=== PATIENT | male | born 1990 | race Caucasian/White ===

== ENCOUNTER 2022-11-28 09:38 | Inpatient (IN) ==
[2022-11-28] MEDS ORDERED: NORMOSOL-R pH 7.4 1000 mL BAG 1,000 ML IV ONE (09:41)
[2022-11-28] MEDS ORDERED: Thiamine 100 MG/ML 2 ml VIAL (200 mg) IV ONE (09:44)
[2022-11-28 10:31] LABS: ABS Basophils 0.1 10^3/ul (0-0.2); ABS Lymphocytes 0.9 10^3/ul (1.0-4.8); ABS Monocytes 0.6 10^3/ul (0-0.8); ABS Neutrophils 7.4 10^3/ul (1.5-7.7); ABS Nucleated RBC 0.1 10^3/ul; Eosinophil % 0.1 %; Hematocrit 39 % (42-52); Hemoglobin 11.6 g/dL (14.0-18.0); Lymphocyte % 9.9 %; Mean Corpuscular HGB Conc 30 g/dL (31-36); Mean Corpuscular Hemoglobin 36 pg (27-31); Mean Corpuscular Volume 120 fL (80-94); Mean Platelet Volume 9.7 fL (7.4-10.4); Nucleated Red Blood Cells % 0.5; Platelet Count 195 10^3/uL (150-450); Red Blood Count 3.25 10^6 /uL (4.18-5.48); Red Cell Distribution Width 19 % (10-15)
[2022-11-28] MEDS ORDERED: Cefepime 1 GM in Dextrose 1 GM/50 ML BAG IV ONE (10:36)
[2022-11-28] MEDS ORDERED: Vancomycin 1,250 MG in NS 0.9% 250 ml 250 ML IVPB ONE (10:36)
[2022-11-28 10:51] LABS: Albumin 3.7 g/dL (3.2-5.2); Albumin/Globulin Ratio 1.3 (1-3); C Reactive Protein 50.95 mg/L (<8.01); Calcium 8.7 mg/dL (8.6-10.3); Creatinine, Serum 2.62 mg/dL (0.67-1.17); Globulin 2.9 g/dL (2-4); Potassium 4.1 mmol/L (3.5-5.0); Total Bilirubin 2.1 mg/dL (0.2-1.0); Total Protein 6.6 g/dL (6.4-8.9); eGFR CKD-EPI 31.9 (>60)
[2022-11-28] MEDS ORDERED: Lorazepam PYXIS KEY PRN ×2 (10:59→11:30)
[2022-11-28] MEDS ORDERED: LORazepam 2 mg VIAL 1 ml IV PUSH ONE ×2 (10:59→11:30)
[2022-11-28] MEDS: NORMOSOL-R pH 7.4 1000 mL BAG 1,000 ML IV SCH ×2 (11:05→16:05)
[2022-11-28] MEDS ORDERED: Iodixanol (CONTRAST) 320 MG/ML 100 ML SDV IV ONE (11:07)
[2022-11-28] MEDS ORDERED: Dextrose 50% Syringe 50 ml 25 GM/50 ML SYRINGE IV PUSH PRN (11:10)
[2022-11-28 11:50] LABS: Venous Bicarbonate HCO3 13.3 mmol/L (24-28)
[2022-11-28] MEDS: Insulin Infusion 100unit/100mL 100 UNIT/100 ML BAG IV SCH (11:55)
[2022-11-28] MEDS: Dexmedetomidine 1,000 MCG in NS 0.9% 250 ml 240 ML IV SCH (11:59)
[2022-11-28] MEDS ORDERED: NORMOSOL R PH IV ONE (12:00)
[2022-11-28] MEDS ORDERED: Vancomycin 1,750 MG in NS 0.9% 500 ml BAG 500 ML IVPB ONE (12:00)
[2022-11-28 13:30] LABS: Creatine Kinase 111 U/L (10-223)
[2022-11-28 13:51] LABS: Triglycerides 1180 mg/dL
[2022-11-28] MEDS ORDERED: Thiamine IV 100 MG/ML VIAL (only for Bannana Bags !) IVPB SCH (14:00)
[2022-11-28 14:26] LABS: Activated Partial Thrombo Time 39.5 seconds (26.0-38.0); INR 1.26 (0.88-1.18)
[2022-11-28] MEDS: Thiamine IV 500 MG in NS 0.9% 250 ML (Wernicke-Korsakoff) IV SCH ×3 (14:46→23:24)
[2022-11-28 15:20] LABS: Urine Appearance Cloudy; Urine Bilirubin Negative (Negative); Urine Blood 3+ (Negative); Urine Color Yellow; Urine Glucose 3+(>=500 mg/dL) (Negative); Urine Ketones Trace (Negative); Urine Nitrite Negative (Negative); Urine Protein 2+(100 mg/dL) (Negative); Urine Specific Gravity 1.025 (1.002-1.030); Urine Urobilinogen Negative (Negative)
[2022-11-28] MEDS: LORazepam 2 mg VIAL 1 ml IV PUSH SCH ×2 (15:21→17:20)
[2022-11-28 15:24] LABS: Urine Bacteria 1+ (Absent); Urine Red Blood Cell 1+(3-5/hpf) (Absent); Urine Squamous Epithelial Cell Present (Absent); Urine White Blood Cell 1+(6-10/hpf) (Absent); Urine Yeast Present (Absent)
[2022-11-28 15:34] LABS: PCO2 Arterial 25 mmHg (35-45); PO2 Arterial 92 mmHg (80-100)
[2022-11-28 16:21] LABS: Anion Gap 23 mmol/L (2-11); CO2 Carbon Dioxide 18 mmol/L (22-32); Calcium 8.1 mg/dL (8.6-10.3); Chloride 96 mmol/L (101-111); Potassium 3.1 mmol/L (3.5-5.0); Sodium 137 mmol/L (135-145)
[2022-11-28 16:26] LABS: Blood Urea Nitrogen 37 mg/dL (6-24); eGFR CKD-EPI 35.4 (>60)
[2022-11-28] MEDS: KCL 20 MEQ/100 ML IVPREMIX 20 MEQ/100 ML BAG IV SCH ×3 (16:48→21:01)
[2022-11-28] MEDS: Enoxaparin 40 MG/0.4 ML SYR SUBCUT SCH (16:48)
[2022-11-28 16:51] LABS: Glucose 918 mg/dL (70-100)
[2022-11-28] MEDS ORDERED: NS 0.9% w/ 20 Meq KCL 1000 ml 1,000 ML IV SCH (17:00)
[2022-11-28 17:30] LABS: TSH Ultra Thyroid Stim Horm 1.07 mcIU/mL (0.34-5.60)
[2022-11-28 17:42] LABS: Folate 2.71 ng/mL (5.90-24.80)
[2022-11-28 17:43] LABS: Vitamin B12 > 1450 pg/mL (180-914)
[2022-11-28] MEDS ORDERED: Folic Acid IV 1 MG in NS 0.9% 50 ML 50 ML IV ONE (18:30)
[2022-11-28 18:45] LABS: Glucose Confirmatory 499 mg/dL (70-100)
[2022-11-28] MEDS ORDERED: Thiamine 100 MG/ML 2 ml VIAL 500 MG in NS 0.9% 250 ml 250 ML IV ONE (19:13)
[2022-11-28] MEDS: Potassium Chloride IV 40 MEQ in Lactated Ringers 1000 ml BAG 1,000 ML IVPB SCH (20:26)
[2022-11-28 21:01] LABS: Anion Gap 10 mmol/L (2-11); Blood Urea Nitrogen 39 mg/dL (6-24); CO2 Carbon Dioxide 27 mmol/L (22-32); Calcium 7.7 mg/dL (8.6-10.3); Chloride 105 mmol/L (101-111); Creatinine, Serum 2.51 mg/dL (0.67-1.17); Potassium 3.6 mmol/L (3.5-5.0); Sodium 142 mmol/L (135-145); eGFR CKD-EPI 33.6 (>60)
[2022-11-28 21:07] LABS: Total Bilirubin 1.9 mg/dL (0.2-1.0)
[2022-11-28 21:32] LABS: Glucose 723 mg/dL (70-100); Phosphorus < 1.0 mg/dL (2.5-5.0)
[2022-11-28] MEDS ORDERED: Potassium Phosphate IV 15 MMOL in NS 0.9% 250 ml 250 ML IVPB ONE (23:00)
[2022-11-29 00:15] LABS: Calcium 7.9 mg/dL (8.6-10.3); Creatinine, Serum 2.49 mg/dL (0.67-1.17); Potassium 3.5 mmol/L (3.5-5.0); eGFR CKD-EPI 33.9 (>60)
[2022-11-29 00:51] LABS: Glucose Confirmatory 497 mg/dL (70-100)
[2022-11-29] MEDS: Potassium Chloride IV 40 MEQ in Lactated Ringers 1000 ml BAG 1,000 ML IVPB SCH ×5 (00:59→22:36)
[2022-11-29] MEDS: Insulin Infusion 100unit/100mL 100 UNIT/100 ML BAG IV SCH (01:55)
[2022-11-29] MEDS: Dexmedetomidine 1,000 MCG in NS 0.9% 250 ml 240 ML IV SCH ×3 (01:58→18:26)
[2022-11-29 03:34] LABS: Blood Urea Nitrogen 41 mg/dL (6-24); CO2 Carbon Dioxide 26 mmol/L (22-32); Creatinine, Serum 2.23 mg/dL (0.67-1.17); Glucose 249 mg/dL (70-100); Magnesium 2.9 mg/dL (1.9-2.7); Potassium 3.7 mmol/L (3.5-5.0); eGFR CKD-EPI 38.7 (>60)
[2022-11-29 03:37] LABS: Anion Gap 12 mmol/L (2-11); Chloride 120 mmol/L (101-111); Phosphorus < 1.0 mg/dL (2.5-5.0); Sodium 158 mmol/L (135-145)
[2022-11-29] MEDS ORDERED: D5W 1000 ml BAG 1,000 ML IV SCH ×4 (04:00→20:00)
[2022-11-29] MEDS ORDERED: Potassium Phosphate IV 30 MMOL in NS 0.9% 250 ml 250 ML IVPB ONE ×2 (05:30→12:15)
[2022-11-29] MEDS: Thiamine IV 500 MG in NS 0.9% 250 ML (Wernicke-Korsakoff) IV SCH ×3 (06:00→21:22)
[2022-11-29 06:50] LABS: ABS Lymphocytes 1.3 10^3/ul (1.0-4.8); ABS Monocytes 0.6 10^3/ul (0-0.8); ABS Neutrophils 5.2 10^3/ul (1.5-7.7); Eosinophil % 0.4 %; Hematocrit 26 % (42-52); Hemoglobin 8.9 g/dL (14.0-18.0); Lymphocyte % 18.2 %; Mean Corpuscular HGB Conc 34 g/dL (31-36); Mean Corpuscular Hemoglobin 36 pg (27-31); Mean Corpuscular Volume 105 fL (80-94); Mean Platelet Volume 9.3 fL (7.4-10.4); Nucleated Red Blood Cells % 0.3; Platelet Count 117 10^3/uL (150-450); Red Blood Count 2.46 10^6 /uL (4.18-5.48); Red Cell Distribution Width 18 % (10-15); White Blood Count 7.1 10^3/uL (3.5-10.8)
[2022-11-29 07:22] LABS: Calcium 7.9 mg/dL (8.6-10.3); Creatinine, Serum 1.94 mg/dL (0.67-1.17); Magnesium 2.6 mg/dL (1.9-2.7); Potassium 3.5 mmol/L (3.5-5.0); eGFR CKD-EPI 45.7 (>60)
[2022-11-29] MEDS: LORazepam 2 mg VIAL 1 ml IV PUSH SCH ×2 (07:37→14:00)
[2022-11-29] MEDS ORDERED: diazePAM INJ CARPUJECT 5 MG/ML SYRINGE IV SCH ×2 (08:00→11:30)
[2022-11-29 08:45] LABS: Calcium 7.7 mg/dL (8.6-10.3); Creatinine, Serum 1.79 mg/dL (0.67-1.17); Potassium 3.3 mmol/L (3.5-5.0); eGFR CKD-EPI 50.4 (>60)
[2022-11-29] MEDS ORDERED: Folic Acid IV 5 MG/ML 10 ML VIAL (50 mg) IV SCH (09:00)
[2022-11-29] MEDS: FOLIC ACID IV SCH (09:26)
[2022-11-29] MEDS: NS 0.9% IV SCH (09:26)
[2022-11-29 10:57] LABS: Calcium 7.6 mg/dL (8.6-10.3); Creatinine, Serum 1.74 mg/dL (0.67-1.17); Magnesium 2.4 mg/dL (1.9-2.7); Phosphorus 1.4 mg/dL (2.5-5.0); Potassium 3.3 mmol/L (3.5-5.0); eGFR CKD-EPI 52.1 (>60)
[2022-11-29 11:22] LABS: Albumin 2.9 g/dL (3.2-5.2); Direct Bilirubin 0.5 mg/dL (0.03-0.18); Total Bilirubin 1.5 mg/dL (0.2-1.0)
[2022-11-29 11:28] LABS: Albumin/Globulin Ratio 1.4 (1-3); Globulin 2.1 g/dL (2-4)
[2022-11-29] MEDS: Insulin GLARGINE 100 un/ml 10 ml VIAL SUBCUT SCH (13:02)
[2022-11-29] MEDS: fentaNYL 100 mcg/2 ml 50 MCG/ML VIAL IV SLOW PU ONE ×2 (13:10→14:19)
[2022-11-29] MEDS ORDERED: fentaNYL 100 mcg/2 ml 50 MCG/ML VIAL IV SLOW PU ONE ×3 (13:48→14:46)
[2022-11-29] MEDS ORDERED: fentaNYL 100 mcg/2 ml 50 MCG/ML VIAL ONE (13:50)
[2022-11-29] MEDS: Pantoprazole VIAL 40 MG VIAL IV SCH (13:54)
[2022-11-29] MEDS ORDERED: Norepinephrine 16MCG/ML BAGD5W 4,000 MCG/250 ML BAG IV ONE (14:20)
[2022-11-29] MEDS ORDERED: Propofol 10 mg/ml 100 ML BTL 1,000 MG/100 ML BTL ONE (14:23)
[2022-11-29] MEDS ORDERED: Rocuronium 50 mg VIAL 10 mg/ml 5 ml VIAL (50 mg) IV ONE (14:23)
[2022-11-29] MEDS ORDERED: Midazolam 50 MG PREMIX IV DRIP 50 ML IV SCH ×2 (14:45→15:00)
[2022-11-29] MEDS: Rocuronium 50 mg VIAL 10 mg/ml 5 ml VIAL (50 mg) ONE ×2 (14:54→15:23)
[2022-11-29] MEDS ORDERED: fentaNYL INFUSION 50 mcg/mL VL 2,500 MCG/50 ML VIAL IV SCH ×2 (15:00→17:47)
[2022-11-29] MEDS ORDERED: Propofol 10 mg/ml 100 ML BTL 1,000 MG/100 ML BTL IV SCH (15:00)
[2022-11-29] MEDS ORDERED: Furosemide 40 mg/4 ml IV VIAL IV ONE (16:21)
[2022-11-29] MEDS: Norepinephrine 16MCG/ML BAGD5W 4,000 MCG/250 ML BAG IV SCH (16:50)
[2022-11-29 17:16] LABS: Urine Appearance Turbid; Urine Bilirubin Negative (Negative); Urine Blood 3+ (Negative); Urine Color Yellow; Urine Glucose 3+(>=500 mg/dL) (Negative); Urine Ketones Trace (Negative); Urine Nitrite Negative (Negative); Urine Protein 3+(>=500 mg/dL) (Negative); Urine Specific Gravity 1.033 (1.002-1.030); Urine Urobilinogen Negative (Negative)
[2022-11-29 17:23] LABS: Urine Amorphous Crystals Present (Absent); Urine Bacteria Absent (Absent); Urine Red Blood Cell 3+(>10/hpf) (Absent); Urine White Blood Cell Trace(0-5/hpf) (Absent)
[2022-11-29 17:31] LABS: Creatinine, Serum 1.53 mg/dL (0.67-1.17); Potassium 4.3 mmol/L (3.5-5.0)
[2022-11-29 17:32] LABS: Calcium 7.5 mg/dL (8.6-10.3); eGFR CKD-EPI 60.8 (>60)
[2022-11-29] MEDS ORDERED: Vancomycin per Pharmacy 1 EA NOTE FOLLOW UP PRN (17:37)
[2022-11-29] MEDS: Enoxaparin 40 MG/0.4 ML SYR SUBCUT SCH (17:46)
[2022-11-29] MEDS: KCL 20 MEQ/100 ML IVPREMIX 20 MEQ/100 ML BAG IV SCH ×2 (17:46→20:32)
[2022-11-29] MEDS: Meropenem 1 GM PREMIX(*) 1 GM/50 ML BAG IV SCH (17:46)
[2022-11-29 17:51] LABS: PCO2 Arterial 33 mmHg (35-45); PO2 Arterial 122 mmHg (80-100)
[2022-11-29] MEDS ORDERED: Vancomycin 2,000 MG in NS 0.9% 500 ml BAG 500 ML IVPB ONE (18:00)
[2022-11-29] MEDS: Propofol 10 mg/ml 100 ML BTL 1,000 MG/100 ML BTL IV SCH ×2 (18:14→19:16)
[2022-11-29] MEDS: Midazolam 50 MG PREMIX IV DRIP 50 ML IV SCH ×2 (18:18→19:13)
[2022-11-29] MEDS: diazePAM INJ CARPUJECT 5 MG/ML SYRINGE IV SCH (20:32)
[2022-11-29] MEDS: Chlorhexidine MOUTHWASH 0.12% 15 ML UDC TOPICAL SCH ×2 (20:32→22:09)
[2022-11-29] MEDS ORDERED: Acetaminophen IV 1 GM/100ML 1,000 MG/100 ML BAG IV PRN (21:42)
[2022-11-29] MEDS: Acetaminophen IV 1 GM/100ML 1,000 MG/100 ML BAG IV PRN (22:09)
[2022-11-30 00:46] LABS: Calcium 6.9 mg/dL (8.6-10.3); Creatinine, Serum 1.87 mg/dL (0.67-1.17); Magnesium 2.1 mg/dL (1.9-2.7); Phosphorus 2.8 mg/dL (2.5-5.0); Potassium 4.1 mmol/L (3.5-5.0); eGFR CKD-EPI 47.8 (>60)
[2022-11-30] MEDS: Midazolam 50 MG PREMIX IV DRIP 50 ML IV SCH ×5 (00:46→20:35)
[2022-11-30] MEDS: Meropenem 1 GM PREMIX(*) 1 GM/50 ML BAG IV SCH ×3 (01:38→18:05)
[2022-11-30] MEDS: diazePAM INJ CARPUJECT 5 MG/ML SYRINGE IV SCH ×4 (01:38→19:39)
[2022-11-30] MEDS: Propofol 10 mg/ml 100 ML BTL 1,000 MG/100 ML BTL IV SCH ×6 (01:44→18:03)
[2022-11-30] MEDS: Chlorhexidine MOUTHWASH 0.12% 15 ML UDC TOPICAL SCH ×6 (02:09→23:00)
[2022-11-30] MEDS: Dexmedetomidine 1,000 MCG in NS 0.9% 250 ml 240 ML IV SCH ×3 (02:37→20:06)
[2022-11-30 04:27] LABS: ABS Basophils 0.1 10^3/ul (0-0.2); ABS Eosinophils 0.1 10^3/ul (0-0.6); ABS Lymphocytes 2.1 10^3/ul (1.0-4.8); ABS Monocytes 0.4 10^3/ul (0-0.8); ABS Neutrophils 4.2 10^3/ul (1.5-7.7); Eosinophil % 2.1 %; Hematocrit 26 % (42-52); Hemoglobin 8.4 g/dL (14.0-18.0); Lymphocyte % 30.6 %; Mean Corpuscular HGB Conc 33 g/dL (31-36); Mean Corpuscular Hemoglobin 36 pg (27-31); Mean Corpuscular Volume 108 fL (80-94); Mean Platelet Volume 9.8 fL (7.4-10.4); Nucleated Red Blood Cells % 0.3; Platelet Count 117 10^3/uL (150-450); Red Blood Count 2.36 10^6 /uL (4.18-5.48); Red Cell Distribution Width 19 % (10-15); White Blood Count 6.9 10^3/uL (3.5-10.8)
[2022-11-30 04:54] LABS: Albumin 2.8 g/dL (3.2-5.2); Albumin/Globulin Ratio 1.3 (1-3); Calcium 6.9 mg/dL (8.6-10.3); Creatinine, Serum 2.14 mg/dL (0.67-1.17); Globulin 2.2 g/dL (2-4); Potassium 4.3 mmol/L (3.5-5.0); Total Bilirubin 1.7 mg/dL (0.2-1.0); eGFR CKD-EPI 40.6 (>60)
[2022-11-30 05:18] LABS: Magnesium 2.1 mg/dL (1.9-2.7)
[2022-11-30] MEDS: Thiamine IV 500 MG in NS 0.9% 250 ML (Wernicke-Korsakoff) IV SCH ×3 (05:43→22:50)
[2022-11-30] MEDS ORDERED: Vancomycin 1,500 MG in NS 0.9% 250 ml 250 ML IVPB SCH (06:30)
[2022-11-30] MEDS ORDERED: Lactated Ringers 1000 ml BAG 1,000 ML IV ONE ×2 (07:36→10:43)
[2022-11-30] MEDS ORDERED: Lactated Ringers 1000 ml BAG 1,000 ML IV SCH (08:00)
[2022-11-30] MEDS: Pantoprazole VIAL 40 MG VIAL IV SCH (08:29)
[2022-11-30] MEDS: FOLIC ACID IV SCH (08:38)
[2022-11-30] MEDS: NS 0.9% IV SCH (08:38)
[2022-11-30] MEDS: Insulin GLARGINE 100 un/ml 10 ml VIAL SUBCUT SCH (08:38)
[2022-11-30] MEDS ORDERED: Midazolam 50 MG PREMIX IV DRIP 50 ML IV SCH (10:28)
[2022-11-30] MEDS: Enoxaparin 40 MG/0.4 ML SYR SUBCUT SCH (11:31)
[2022-11-30] MEDS: fentaNYL INFUSION 50 mcg/mL VL 2,500 MCG/50 ML VIAL IV SCH ×2 (12:00→16:15)
[2022-11-30] MEDS ORDERED: diazePAM INJ CARPUJECT 5 MG/ML SYRINGE IV ONE (12:09)
[2022-11-30] MEDS ORDERED: Ketamine HCL 50 mg/ml 10 ml VIAL (500 MG) ONE (14:30)
[2022-11-30] MEDS ORDERED: fentaNYL 250 mcg/5 ml 50 MCG/ML 5 ml VIAL (250 MCG) ONE (14:30)
[2022-11-30] MEDS ORDERED: Rocuronium 50 mg VIAL 10 mg/ml 5 ml VIAL (50 mg) ONE (14:30)
[2022-11-30] MEDS ORDERED: Midazolam 10 mg/10 ml VIAL 1 mg/ml 10 ml VIAL (10 mg) ONE (14:30)
[2022-11-30 14:56] LABS: Calcium 6.8 mg/dL (8.6-10.3); Creatinine, Serum 2.29 mg/dL (0.67-1.17); Potassium 4.9 mmol/L (3.5-5.0); eGFR CKD-EPI 37.5 (>60)
[2022-11-30] MEDS ORDERED: Vancomycin 1000 MG in NS 0.9% 250 ML IVPB SCH (18:30)
[2022-11-30 20:12] LABS: Calcium 6.7 mg/dL (8.6-10.3); Creatinine, Serum 2.31 mg/dL (0.67-1.17); Potassium 4.5 mmol/L (3.5-5.0); eGFR CKD-EPI 37.1 (>60)
[2022-11-30] MEDS: Acetaminophen IV 1 GM/100ML 1,000 MG/100 ML BAG IV PRN (22:59)
[2022-12-01] MEDS: diazePAM INJ CARPUJECT 5 MG/ML SYRINGE IV SCH ×4 (02:00→20:40)
[2022-12-01] MEDS: Meropenem 1 GM PREMIX(*) 1 GM/50 ML BAG IV SCH ×3 (02:01→17:00)
[2022-12-01] MEDS: Midazolam 50 MG PREMIX IV DRIP 50 ML IV SCH ×5 (02:27→23:23)
[2022-12-01] MEDS: Dexmedetomidine 1,000 MCG in NS 0.9% 250 ml 240 ML IV SCH ×3 (03:54→18:41)
[2022-12-01] MEDS: Chlorhexidine MOUTHWASH 0.12% 15 ML UDC TOPICAL SCH ×6 (04:09→22:03)
[2022-12-01 04:35] LABS: ABS Eosinophils 0.3 10^3/ul (0-0.6); ABS Lymphocytes 1.6 10^3/ul (1.0-4.8); ABS Monocytes 0.3 10^3/ul (0-0.8); ABS Neutrophils 5.5 10^3/ul (1.5-7.7); ABS Nucleated RBC 0.1 10^3/ul; Eosinophil % 3.5 %; Hematocrit 26 % (42-52); Hemoglobin 8.6 g/dL (14.0-18.0); Lymphocyte % 20.7 %; Mean Corpuscular HGB Conc 33 g/dL (31-36); Mean Corpuscular Hemoglobin 36 pg (27-31); Mean Corpuscular Volume 109 fL (80-94); Mean Platelet Volume 9.8 fL (7.4-10.4); Platelet Count 153 10^3/uL (150-450); Red Blood Count 2.42 10^6 /uL (4.18-5.48); Red Cell Distribution Width 19 % (10-15); White Blood Count 7.8 10^3/uL (3.5-10.8)
[2022-12-01 05:14] LABS: Albumin 2.7 g/dL (3.2-5.2); Albumin/Globulin Ratio 1.1 (1-3); Calcium 6.8 mg/dL (8.6-10.3); Creatinine, Serum 2.02 mg/dL (0.67-1.17); Direct Bilirubin 0.7 mg/dL (0.03-0.18); Globulin 2.4 g/dL (2-4); Indirect Bilirubin 1.2 mg/dL (0.3-1.0); Magnesium 1.9 mg/dL (1.9-2.7); Phosphorus 1.9 mg/dL (2.5-5.0); Potassium 4.9 mmol/L (3.5-5.0); Total Bilirubin 1.9 mg/dL (0.2-1.0); Total Protein 5.1 g/dL (6.4-8.9); Vancomycin Trough 29.7 mcg/mL; eGFR CKD-EPI 43.6 (>60)
[2022-12-01] MEDS: Thiamine IV 500 MG in NS 0.9% 250 ML (Wernicke-Korsakoff) IV SCH ×3 (05:46→21:58)
[2022-12-01] MEDS ORDERED: Vancomycin Trough Check NOTE FOLLOW UP ONE (06:00)
[2022-12-01] MEDS: Insulin GLARGINE 100 un/ml 10 ml VIAL SUBCUT SCH (08:14)
[2022-12-01] MEDS: NS 0.9% IV SCH (08:15)
[2022-12-01] MEDS: Pantoprazole VIAL 40 MG VIAL IV SCH (08:15)
[2022-12-01] MEDS: FOLIC ACID IV SCH (08:15)
[2022-12-01] MEDS ORDERED: Potassium Phosphate IV 15 MMOL in NS 0.9% 250 ml 250 ML IVPB ONE (09:00)
[2022-12-01] MEDS ORDERED: Insulin GLARGINE 100 un/ml 10 ml VIAL SUBCUT ONE (09:00)
[2022-12-01] MEDS: Enoxaparin 40 MG/0.4 ML SYR SUBCUT SCH (09:11)
[2022-12-01] MEDS ORDERED: fentaNYL 100 mcg/2 ml 50 MCG/ML VIAL ONE (11:05)
[2022-12-01] MEDS ORDERED: Furosemide 40 mg/4 ml IV VIAL IV ONE (11:14)
[2022-12-01] MEDS ORDERED: fentaNYL 100 mcg/2 ml 50 MCG/ML VIAL IV SLOW PU ONE (11:23)
[2022-12-01] MEDS: Acetaminophen IV 1 GM/100ML 1,000 MG/100 ML BAG IV PRN (15:55)
[2022-12-01 17:37] LABS: Calcium 7.1 mg/dL (8.6-10.3); Creatinine, Serum 1.84 mg/dL (0.67-1.17); eGFR CKD-EPI 48.7 (>60)
[2022-12-01 17:49] LABS: Potassium 5.2 mmol/L (3.5-5.0)
[2022-12-01] MEDS: fentaNYL INFUSION 50 mcg/mL VL 2,500 MCG/50 ML VIAL IV SCH (18:20)
[2022-12-01] MEDS: Dexmedetomidine 1,000 MCG in NS 0.9% 250 ML IV SCH (22:26)
[2022-12-02] MEDS: Dexmedetomidine 1,000 MCG in NS 0.9% 250 ML IV SCH ×4 (00:58→19:02)
[2022-12-02] MEDS: Meropenem 1 GM PREMIX(*) 1 GM/50 ML BAG IV SCH ×3 (01:31→18:42)
[2022-12-02] MEDS: diazePAM INJ CARPUJECT 5 MG/ML SYRINGE IV SCH ×4 (01:49→20:20)
[2022-12-02] MEDS: Chlorhexidine MOUTHWASH 0.12% 15 ML UDC TOPICAL SCH ×6 (02:06→22:54)
[2022-12-02] MEDS: Midazolam 50 MG PREMIX IV DRIP 50 ML IV SCH ×4 (04:25→19:15)
[2022-12-02 04:37] LABS: ABS Basophils 0.1 10^3/ul (0-0.2); ABS Eosinophils 0.2 10^3/ul (0-0.6); ABS Lymphocytes 1.3 10^3/ul (1.0-4.8); ABS Monocytes 0.4 10^3/ul (0-0.8); ABS Neutrophils 5.6 10^3/ul (1.5-7.7); ABS Nucleated RBC 0.1 10^3/ul; Eosinophil % 2.8 %; Hematocrit 27 % (42-52); Hemoglobin 8.8 g/dL (14.0-18.0); Lymphocyte % 17.3 %; Mean Corpuscular HGB Conc 33 g/dL (31-36); Mean Corpuscular Hemoglobin 36 pg (27-31); Mean Corpuscular Volume 109 fL (80-94); Nucleated Red Blood Cells % 1.9; Platelet Count 184 10^3/uL (150-450); Red Blood Count 2.47 10^6 /uL (4.18-5.48); Red Cell Distribution Width 18 % (10-15); White Blood Count 7.6 10^3/uL (3.5-10.8)
[2022-12-02 04:40] LABS: Albumin 2.7 g/dL (3.2-5.2); Calcium 6.8 mg/dL (8.6-10.3); Magnesium 1.5 mg/dL (1.9-2.7); Potassium 4.4 mmol/L (3.5-5.0); Total Bilirubin 1.8 mg/dL (0.2-1.0)
[2022-12-02 04:46] LABS: Albumin/Globulin Ratio 1.2 (1-3); Creatinine, Serum 1.54 mg/dL (0.67-1.17); Globulin 2.3 g/dL (2-4); Phosphorus 2.5 mg/dL (2.5-5.0); eGFR CKD-EPI 60.3 (>60)
[2022-12-02] MEDS: Thiamine IV 500 MG in NS 0.9% 250 ML (Wernicke-Korsakoff) IV SCH ×3 (05:29→21:40)
[2022-12-02] MEDS ORDERED: Magnesium Sulf 4 GM/100 ML IV 4,000 MG/100 ML BAG IVPB ONE (06:10)
[2022-12-02] MEDS: Insulin GLARGINE 100 un/ml 10 ml VIAL SUBCUT SCH (08:34)
[2022-12-02] MEDS: Pantoprazole VIAL 40 MG VIAL IV SCH (08:35)
[2022-12-02] MEDS: FOLIC ACID IV SCH (08:35)
[2022-12-02] MEDS: NS 0.9% IV SCH (08:35)
[2022-12-02] MEDS: Enoxaparin 40 MG/0.4 ML SYR SUBCUT SCH (08:35)
[2022-12-02] MEDS ORDERED: Dexmedetomidine 200 mcg/2 ml 2 ml VIAL (200 mcg) ONE (09:00)
[2022-12-02] MEDS: Norepinephrine 16MCG/ML BAGD5W 4,000 MCG/250 ML BAG IV SCH (10:10)
[2022-12-02] MEDS: Acetaminophen IV 1 GM/100ML 1,000 MG/100 ML BAG IV PRN (10:50)
[2022-12-02] MEDS ORDERED: Midazolam 5 mg/5 ml VIAL 1 mg/ml 5 ml VIAL (5 mg) ONE (13:40)
[2022-12-02] MEDS ORDERED: fentaNYL 100 mcg/2 ml 50 MCG/ML VIAL ONE (13:47)
[2022-12-02] MEDS ORDERED: Midazolam 2 mg/2 ml VIAL 1 mg/ml 2 ml VIAL (2 mg) IV SLOW PU ONE (14:29)
[2022-12-02] MEDS: fentaNYL INFUSION 50 mcg/mL VL 2,500 MCG/50 ML VIAL IV SCH (23:44)
[2022-12-02] MEDS: Dextran 70/Hypromellose Tears Eye Drops 15 ml BTL (for Artificials Tears) BOTH EYES PRN (23:49)
[2022-12-03] MEDS: Midazolam 50 MG PREMIX IV DRIP 50 ML IV SCH ×5 (00:24→19:39)
[2022-12-03] MEDS: Dexmedetomidine 1,000 MCG in NS 0.9% 250 ML IV SCH ×4 (00:59→19:33)
[2022-12-03] MEDS: Chlorhexidine MOUTHWASH 0.12% 15 ML UDC TOPICAL SCH ×6 (02:00→23:09)
[2022-12-03] MEDS: diazePAM INJ CARPUJECT 5 MG/ML SYRINGE IV SCH ×3 (02:00→15:54)
[2022-12-03] MEDS: Meropenem 1 GM PREMIX(*) 1 GM/50 ML BAG IV SCH ×3 (02:01→17:53)
[2022-12-03] MEDS: Acetaminophen IV 1 GM/100ML 1,000 MG/100 ML BAG IV PRN ×3 (02:08→21:47)
[2022-12-03] MEDS ORDERED: Polyethylene Glycol 3350 17 GM PACKET PO PRN (02:38)
[2022-12-03] MEDS ORDERED: Senna TAB 8.6 mg TAB PO PRN (02:38)
[2022-12-03 04:38] LABS: Hematocrit 25 % (42-52); Hemoglobin 8.1 g/dL (14.0-18.0); Mean Corpuscular HGB Conc 32 g/dL (31-36); Mean Corpuscular Hemoglobin 35 pg (27-31); Mean Corpuscular Volume 108 fL (80-94); Platelet Count 203 10^3/uL (150-450); Red Blood Count 2.32 10^6 /uL (4.18-5.48); Red Cell Distribution Width 18 % (10-15)
[2022-12-03 05:10] LABS: Calcium 6.8 mg/dL (8.6-10.3); Creatinine, Serum 1.09 mg/dL (0.67-1.17); Magnesium 1.7 mg/dL (1.9-2.7); Phosphorus 2.3 mg/dL (2.5-5.0); Potassium 4.4 mmol/L (3.5-5.0); eGFR CKD-EPI 91.3 (>60)
[2022-12-03] MEDS: Thiamine IV 500 MG in NS 0.9% 250 ML (Wernicke-Korsakoff) IV SCH ×3 (05:22→22:08)
[2022-12-03] MEDS: Docusate LIQ 100 MG/10 ML UDC PO PRN (05:22)
[2022-12-03] MEDS: Dextran 70/Hypromellose Tears Eye Drops 15 ml BTL (for Artificials Tears) BOTH EYES PRN ×2 (05:34→08:56)
[2022-12-03] MEDS ORDERED: Magnesium Sulfate IV 3 GM in NS 0.9% 100 ml BAG 100 ML IVPB ONE (06:28)
[2022-12-03 06:32] LABS: ABS Basophils 0.1 10^3/ul (0-0.2); ABS Eosinophils 0.2 10^3/ul (0-0.6); ABS Lymphocytes 1.3 10^3/ul (1.0-4.8); ABS Monocytes 0.5 10^3/ul (0-0.8); ABS Neutrophils 4.9 10^3/ul (1.5-7.7); ABS Nucleated RBC 0.1 10^3/ul; Eosinophil % 2.3 %; Lymphocyte % 18.8 %; Nucleated Red Blood Cells % 1.3
[2022-12-03] MEDS ORDERED: Potassium Phosphate IV 5 MMOL in NS 0.9% 250 ml 250 ML IVPB ONE (07:36)
[2022-12-03] MEDS: Pantoprazole VIAL 40 MG VIAL IV SCH (08:33)
[2022-12-03] MEDS: Enoxaparin 40 MG/0.4 ML SYR SUBCUT SCH (08:33)
[2022-12-03] MEDS: NS 0.9% IV SCH (08:33)
[2022-12-03] MEDS: FOLIC ACID IV SCH (08:33)
[2022-12-03] MEDS: Insulin GLARGINE 100 un/ml 10 ml VIAL SUBCUT SCH (08:51)
[2022-12-03] MEDS ORDERED: Midazolam 5 mg/5 ml VIAL 1 mg/ml 5 ml VIAL (5 mg) ONE (10:21)
[2022-12-03] MEDS ORDERED: Midazolam 5 mg/5 ml VIAL 1 mg/ml 5 ml VIAL (5 mg) IV SLOW PU ONE (10:23)
[2022-12-03] MEDS ORDERED: Ondansetron 4 mg VIAL 2 MG/ML 2 ml VIAL ONE (20:16)
[2022-12-03] MEDS ORDERED: Midazolam 2 mg/2 ml VIAL 1 mg/ml 2 ml VIAL (2 mg) ONE (20:16)
[2022-12-03] MEDS ORDERED: Midazolam 2 mg/2 ml VIAL 1 mg/ml 2 ml VIAL (2 mg) IV SLOW PU ONE (20:41)
[2022-12-03] MEDS: Ondansetron 4 mg VIAL 2 MG/ML 2 ml VIAL IV PRN (20:47)
[2022-12-03] MEDS: Metoclopramide 5 MG/ML VIAL (10 mg) IV SLOW PU SCH (22:06)
[2022-12-04] MEDS: diazePAM INJ CARPUJECT 5 MG/ML SYRINGE IV SCH ×4 (00:12→23:58)
[2022-12-04] MEDS: Midazolam 50 MG PREMIX IV DRIP 50 ML IV SCH ×3 (00:15→20:49)
[2022-12-04] MEDS: Dexmedetomidine 1,000 MCG in NS 0.9% 250 ML IV SCH ×4 (01:05→20:09)
[2022-12-04] MEDS: Meropenem 1 GM PREMIX(*) 1 GM/50 ML BAG IV SCH ×3 (01:53→17:50)
[2022-12-04] MEDS: Chlorhexidine MOUTHWASH 0.12% 15 ML UDC TOPICAL SCH ×7 (02:01→23:59)
[2022-12-04] MEDS: Dextran 70/Hypromellose Tears Eye Drops 15 ml BTL (for Artificials Tears) BOTH EYES PRN (02:01)
[2022-12-04] MEDS: Metoclopramide 5 MG/ML VIAL (10 mg) IV SLOW PU SCH ×3 (02:01→14:13)
[2022-12-04 04:25] LABS: Hematocrit 24 % (42-52); Hemoglobin 7.8 g/dL (14.0-18.0); Mean Corpuscular HGB Conc 33 g/dL (31-36); Mean Corpuscular Hemoglobin 36 pg (27-31); Mean Corpuscular Volume 108 fL (80-94); Mean Platelet Volume 8.6 fL (7.4-10.4); Platelet Count 216 10^3/uL (150-450); Red Cell Distribution Width 18 % (10-15); White Blood Count 5.8 10^3/uL (3.5-10.8)
[2022-12-04 05:15] LABS: Albumin 2.4 g/dL (3.2-5.2); Albumin/Globulin Ratio 1.1 (1-3); Calcium 6.5 mg/dL (8.6-10.3); Creatinine, Serum 0.79 mg/dL (0.67-1.17); Globulin 2.2 g/dL (2-4); Magnesium 1.4 mg/dL (1.9-2.7); Phosphorus 2.9 mg/dL (2.5-5.0); Potassium 3.7 mmol/L (3.5-5.0); Total Bilirubin 1.3 mg/dL (0.2-1.0); Total Protein 4.6 g/dL (6.4-8.9); eGFR CKD-EPI 119.5 (>60)
[2022-12-04] MEDS ORDERED: Magnesium Sulf 4 GM/100 ML IV 4,000 MG/100 ML BAG IVPB ONE (05:24)
[2022-12-04] MEDS ORDERED: Potassium Chloride LIQUID 20 MEQ/15 ML LIQUID PO ONE ×2 (05:24→07:00)
[2022-12-04 05:32] LABS: ABS Eosinophils 0.1 10^3/ul (0-0.6); ABS Lymphocytes 1.3 10^3/ul (1.0-4.8); ABS Monocytes 0.7 10^3/ul (0-0.8); ABS Neutrophils 3.7 10^3/ul (1.5-7.7); Eosinophil % 2.3 %; Lymphocyte % 22.1 %; Nucleated Red Blood Cells % 0.3
[2022-12-04] MEDS ORDERED: Furosemide 40 mg/4 ml IV VIAL IV SLOW PU ONE (05:35)
[2022-12-04] MEDS: Thiamine IV 500 MG in NS 0.9% 250 ML (Wernicke-Korsakoff) IV SCH ×3 (05:49→20:44)
[2022-12-04] MEDS: NS 0.9% IV SCH (08:25)
[2022-12-04] MEDS: Insulin GLARGINE 100 un/ml 10 ml VIAL SUBCUT SCH (08:25)
[2022-12-04] MEDS: FOLIC ACID IV SCH (08:25)
[2022-12-04] MEDS: Pantoprazole VIAL 40 MG VIAL IV SCH (08:26)
[2022-12-04] MEDS: Enoxaparin 40 MG/0.4 ML SYR SUBCUT SCH (10:26)
[2022-12-04] MEDS: fentaNYL INFUSION 50 mcg/mL VL 2,500 MCG/50 ML VIAL IV SCH (10:49)
[2022-12-04] MEDS ORDERED: OLANZapine 5 mg TAB *ODT PO SCH (11:00)
[2022-12-04] MEDS ORDERED: Midazolam IV for DRIP 100 MG in NS 0.9% 100 ml BAG 80 ML IV SCH (11:00)
[2022-12-04] MEDS ORDERED: Metoclopramide 5 MG/ML VIAL (10 mg) IV SLOW PU PRN (18:00)
[2022-12-04] MEDS: OLANZapine 5 mg TAB *ODT PO SCH (20:43)
[2022-12-05] MEDS: Ondansetron 4 mg VIAL 2 MG/ML 2 ml VIAL IV PRN (01:07)
[2022-12-05] MEDS: fentaNYL INFUSION 50 mcg/mL VL 2,500 MCG/50 ML VIAL IV SCH ×2 (02:00→08:39)
[2022-12-05] MEDS: Meropenem 1 GM PREMIX(*) 1 GM/50 ML BAG IV SCH ×3 (02:15→18:03)
[2022-12-05] MEDS: Dexmedetomidine 1,000 MCG in NS 0.9% 250 ML IV SCH ×4 (02:24→20:36)
[2022-12-05] MEDS: Dextran 70/Hypromellose Tears Eye Drops 15 ml BTL (for Artificials Tears) BOTH EYES PRN ×2 (02:32→19:10)
[2022-12-05] MEDS: Midazolam 50 MG PREMIX IV DRIP 50 ML IV SCH ×2 (03:55→09:17)
[2022-12-05] MEDS: Chlorhexidine MOUTHWASH 0.12% 15 ML UDC TOPICAL SCH ×6 (04:11→22:35)
[2022-12-05 04:43] LABS: Hematocrit 24 % (42-52); Hemoglobin 8.1 g/dL (14.0-18.0); Mean Corpuscular HGB Conc 34 g/dL (31-36); Mean Corpuscular Hemoglobin 36 pg (27-31); Mean Corpuscular Volume 108 fL (80-94); Mean Platelet Volume 8.7 fL (7.4-10.4); Platelet Count 239 10^3/uL (150-450); Red Blood Count 2.24 10^6 /uL (4.18-5.48); Red Cell Distribution Width 18 % (10-15); White Blood Count 5.9 10^3/uL (3.5-10.8)
[2022-12-05] MEDS ORDERED: Furosemide 40 mg/4 ml IV VIAL IV SLOW PU ONE (05:09)
[2022-12-05 05:24] LABS: Calcium 7.1 mg/dL (8.6-10.3); Creatinine, Serum 0.67 mg/dL (0.67-1.17); Magnesium 1.5 mg/dL (1.9-2.7); Phosphorus 2.7 mg/dL (2.5-5.0); Potassium 3.9 mmol/L (3.5-5.0); eGFR CKD-EPI 125.6 (>60)
[2022-12-05 05:43] LABS: Anisocytosis 1+; Macrocytosis 1+; Polychromasia 1+
[2022-12-05 05:44] LABS: ABS Basophils 0.1 10^3/ul (0-0.2); ABS Eosinophils 0.1 10^3/ul (0-0.6); ABS Lymphocytes 1.4 10^3/ul (1.0-4.8); ABS Monocytes 0.8 10^3/ul (0-0.8); ABS Neutrophils 3.4 10^3/ul (1.5-7.7); Eosinophil % 2.2 %; Lymphocyte % 23.9 %; Nucleated Red Blood Cells % 0.4
[2022-12-05] MEDS ORDERED: Magnesium Sulf 4 GM/100 ML IV 4,000 MG/100 ML BAG IVPB ONE (05:51)
[2022-12-05] MEDS ORDERED: Potassium Chloride LIQUID 20 MEQ/15 ML LIQUID PO ONE (05:51)
[2022-12-05] MEDS: Thiamine IV 500 MG in NS 0.9% 250 ML (Wernicke-Korsakoff) IV SCH ×3 (05:53→21:09)
[2022-12-05] MEDS: Enoxaparin 40 MG/0.4 ML SYR SUBCUT SCH (09:11)
[2022-12-05] MEDS: Pantoprazole VIAL 40 MG VIAL IV SCH (09:11)
[2022-12-05] MEDS: diazePAM INJ CARPUJECT 5 MG/ML SYRINGE IV SCH ×3 (09:18→23:34)
[2022-12-05] MEDS: NS 0.9% IV SCH (09:19)
[2022-12-05] MEDS: Insulin GLARGINE 100 un/ml 10 ml VIAL SUBCUT SCH (09:19)
[2022-12-05] MEDS: FOLIC ACID IV SCH (09:19)
[2022-12-05] MEDS: OLANZapine 5 mg TAB *ODT PO SCH ×2 (09:20→20:28)
[2022-12-05] MEDS: Acetaminophen IV 1 GM/100ML 1,000 MG/100 ML BAG IV PRN ×2 (10:01→18:28)
[2022-12-05 12:01] LABS: Albumin 2.6 g/dL (3.2-5.2); Albumin/Globulin Ratio 1.1 (1-3); Direct Bilirubin 0.3 mg/dL (0.03-0.18); Globulin 2.4 g/dL (2-4); Indirect Bilirubin 0.7 mg/dL (0.3-1.0)
[2022-12-05] MEDS ORDERED: Midazolam 50 MG PREMIX IV DRIP 50 ML IV SCH (14:54)
[2022-12-05] MEDS: Propofol 10 mg/ml 100 ML BTL 1,000 MG/100 ML BTL IV SCH ×2 (16:16→23:06)
[2022-12-05] MEDS ORDERED: Midazolam 2 mg/2 ml VIAL 1 mg/ml 2 ml VIAL (2 mg) IV SLOW PU PRN (17:51)
[2022-12-05] MEDS: Docusate LIQ 100 MG/10 ML UDC PO PRN (23:57)
[2022-12-06] MEDS: Chlorhexidine MOUTHWASH 0.12% 15 ML UDC TOPICAL SCH ×2 (02:07→06:16)
[2022-12-06] MEDS: Meropenem 1 GM PREMIX(*) 1 GM/50 ML BAG IV SCH ×3 (02:08→18:24)
[2022-12-06] MEDS: Dexmedetomidine 1,000 MCG in NS 0.9% 250 ML IV SCH ×2 (02:42→08:45)
[2022-12-06] MEDS: Thiamine IV 500 MG in NS 0.9% 250 ML (Wernicke-Korsakoff) IV SCH ×3 (05:04→21:36)
[2022-12-06 05:27] LABS: ABS Basophils 0.1 10^3/ul (0-0.2); ABS Eosinophils 0.1 10^3/ul (0-0.6); ABS Lymphocytes 1.2 10^3/ul (1.0-4.8); ABS Monocytes 0.6 10^3/ul (0-0.8); ABS Neutrophils 3.6 10^3/ul (1.5-7.7); Eosinophil % 2.2 %; Hematocrit 25 % (42-52); Hemoglobin 8.2 g/dL (14.0-18.0); Mean Corpuscular HGB Conc 33 g/dL (31-36); Mean Corpuscular Hemoglobin 35 pg (27-31); Mean Corpuscular Volume 107 fL (80-94); Nucleated Red Blood Cells % 0.5; Platelet Count 281 10^3/uL (150-450); Red Blood Count 2.34 10^6 /uL (4.18-5.48); Red Cell Distribution Width 17 % (10-15); White Blood Count 5.6 10^3/uL (3.5-10.8)
[2022-12-06 06:10] LABS: Calcium 7.7 mg/dL (8.6-10.3); Creatinine, Serum 0.69 mg/dL (0.67-1.17); Magnesium 1.6 mg/dL (1.9-2.7); Phosphorus 2.7 mg/dL (2.5-5.0); Potassium 3.8 mmol/L (3.5-5.0); eGFR CKD-EPI 124.5 (>60)
[2022-12-06] MEDS: Propofol 10 mg/ml 100 ML BTL 1,000 MG/100 ML BTL IV SCH (06:33)
[2022-12-06] MEDS ORDERED: Magnesium Sulf 4 GM/100 ML IV 4,000 MG/100 ML BAG IVPB ONE (07:38)
[2022-12-06] MEDS: diazePAM INJ CARPUJECT 5 MG/ML SYRINGE IV SCH (09:09)
[2022-12-06] MEDS: OLANZapine 5 mg TAB *ODT PO SCH ×2 (09:10→21:41)
[2022-12-06] MEDS: FOLIC ACID IV SCH (09:16)
[2022-12-06] MEDS: NS 0.9% IV SCH (09:16)
[2022-12-06] MEDS: Insulin GLARGINE 100 un/ml 10 ml VIAL SUBCUT SCH (09:20)
[2022-12-06] MEDS: Pantoprazole VIAL 40 MG VIAL IV SCH (09:21)
[2022-12-06] MEDS: Enoxaparin 40 MG/0.4 ML SYR SUBCUT SCH (09:21)
[2022-12-06] MEDS: Acetaminophen IV 1 GM/100ML 1,000 MG/100 ML BAG IV PRN ×2 (12:11→20:42)
[2022-12-06] MEDS ORDERED: Anidulafungin 200 MG in NS 0.9% 250 ml 200 ML IVPB ONE (12:53)
[2022-12-06] MEDS: Dexmedetomidine 1,000 MCG in NS 0.9% 250 ml 240 ML IV SCH (14:35)
[2022-12-06] MEDS: Metoprolol Tartrate 5 mg VIAL 5 ml VIAL (1 mg/ml) IV PRN (17:15)
[2022-12-07] MEDS: Meropenem 1 GM PREMIX(*) 1 GM/50 ML BAG IV SCH ×3 (01:40→19:20)
[2022-12-07 04:30] LABS: Hematocrit 26 % (42-52); Hemoglobin 8.4 g/dL (14.0-18.0); Mean Corpuscular HGB Conc 33 g/dL (31-36); Mean Corpuscular Hemoglobin 35 pg (27-31); Mean Corpuscular Volume 107 fL (80-94); Platelet Count 283 10^3/uL (150-450); Red Blood Count 2.42 10^6 /uL (4.18-5.48); Red Cell Distribution Width 18 % (10-15)
[2022-12-07 05:08] LABS: Calcium 7.8 mg/dL (8.6-10.3); Creatinine, Serum 0.61 mg/dL (0.67-1.17); Magnesium 1.6 mg/dL (1.9-2.7); Phosphorus 2.9 mg/dL (2.5-5.0); Potassium 3.6 mmol/L (3.5-5.0); eGFR CKD-EPI 129.3 (>60)
[2022-12-07] MEDS: Acetaminophen IV 1 GM/100ML 1,000 MG/100 ML BAG IV PRN ×2 (05:15→13:45)
[2022-12-07 05:21] LABS: ABS Eosinophils 0.1 10^3/ul (0-0.6); ABS Lymphocytes 1.6 10^3/ul (1.0-4.8); ABS Monocytes 0.7 10^3/ul (0-0.8); ABS Neutrophils 4.6 10^3/ul (1.5-7.7); Eosinophil % 1.2 %; Lymphocyte % 23.1 %; Nucleated Red Blood Cells % 0.3
[2022-12-07 05:25] LABS: Anisocytosis 2+; Polychromasia 2+
[2022-12-07] MEDS: Thiamine IV 500 MG in NS 0.9% 250 ML (Wernicke-Korsakoff) IV SCH (05:37)
[2022-12-07] MEDS: Dexmedetomidine 1,000 MCG in NS 0.9% 250 ml 240 ML IV SCH (06:12)
[2022-12-07] MEDS: FOLIC ACID IV SCH (07:56)
[2022-12-07] MEDS: Pantoprazole VIAL 40 MG VIAL IV SCH (07:56)
[2022-12-07] MEDS: NS 0.9% IV SCH (07:56)
[2022-12-07] MEDS: OLANZapine 5 mg TAB *ODT PO SCH ×2 (07:56→20:26)
[2022-12-07] MEDS: Dextran 70/Hypromellose Tears Eye Drops 15 ml BTL (for Artificials Tears) BOTH EYES PRN ×2 (07:56→17:04)
[2022-12-07] MEDS ORDERED: Magnesium Sulf 4 GM/100 ML IV 4,000 MG/100 ML BAG IVPB ONE (08:03)
[2022-12-07] MEDS ORDERED: Potassium Chlor 20 meq TAB.ER PO ONE (08:03)
[2022-12-07] MEDS: Insulin GLARGINE 100 un/ml 10 ml VIAL SUBCUT SCH (08:51)
[2022-12-07] MEDS: Enoxaparin 40 MG/0.4 ML SYR SUBCUT SCH (08:51)
[2022-12-07] MEDS: Metoprolol Tartrate 5 mg VIAL 5 ml VIAL (1 mg/ml) IV PRN ×2 (14:06→20:02)
[2022-12-07] MEDS: Anidulafungin 100 MG in NS 0.9% 100 ml BAG 100 ML IVPB SCH (14:07)
[2022-12-08] MEDS: Metoprolol Tartrate 5 mg VIAL 5 ml VIAL (1 mg/ml) IV PRN (01:41)
[2022-12-08] MEDS: Meropenem 1 GM PREMIX(*) 1 GM/50 ML BAG IV SCH ×3 (02:19→17:33)
[2022-12-08 04:25] LABS: Hematocrit 25 % (42-52); Hemoglobin 8.2 g/dL (14.0-18.0); Mean Corpuscular HGB Conc 33 g/dL (31-36); Mean Corpuscular Hemoglobin 35 pg (27-31); Mean Corpuscular Volume 105 fL (80-94); Mean Platelet Volume 8.9 fL (7.4-10.4); Platelet Count 356 10^3/uL (150-450); Red Blood Count 2.35 10^6 /uL (4.18-5.48); Red Cell Distribution Width 17 % (10-15); White Blood Count 8.5 10^3/uL (3.5-10.8)
[2022-12-08] MEDS: Acetaminophen IV 1 GM/100ML 1,000 MG/100 ML BAG IV PRN (05:20)
[2022-12-08 05:23] LABS: Calcium 7.7 mg/dL (8.6-10.3); Creatinine, Serum 0.51 mg/dL (0.67-1.17); Magnesium 1.5 mg/dL (1.9-2.7); Potassium 3.3 mmol/L (3.5-5.0); eGFR CKD-EPI 136.4 (>60)
[2022-12-08 05:58] LABS: Polychromasia 2+
[2022-12-08 05:59] LABS: Macrocytosis 3+
[2022-12-08 06:00] LABS: RBC Morphology Normal (Normal)
[2022-12-08 06:01] LABS: ABS Basophils 0.1 10^3/ul (0-0.2); ABS Eosinophils 0.1 10^3/ul (0-0.6); ABS Lymphocytes 1.6 10^3/ul (1.0-4.8); ABS Monocytes 0.8 10^3/ul (0-0.8); ABS Neutrophils 5.9 10^3/ul (1.5-7.7); ABS Nucleated RBC 0.1 10^3/ul; Eosinophil % 1.1 %; Nucleated Red Blood Cells % 0.6
[2022-12-08] MEDS ORDERED: Potassium Chlor 20 meq TAB.ER PO ONE (06:17)
[2022-12-08] MEDS ORDERED: Magnesium Sulf 4 GM/100 ML IV 4,000 MG/100 ML BAG IVPB ONE (06:18)
[2022-12-08 09:24] LABS: Albumin 2.8 g/dL (3.2-5.2); Albumin/Globulin Ratio 1.1 (1-3); Direct Bilirubin 0.2 mg/dL (0.03-0.18); Globulin 2.6 g/dL (2-4); Indirect Bilirubin 0.7 mg/dL (0.3-1.0); Total Bilirubin 0.9 mg/dL (0.2-1.0); Total Protein 5.4 g/dL (6.4-8.9)
[2022-12-08] MEDS: Enoxaparin 40 MG/0.4 ML SYR SUBCUT SCH (10:16)
[2022-12-08] MEDS: Insulin GLARGINE 100 un/ml 10 ml VIAL SUBCUT SCH (10:16)
[2022-12-08] MEDS: Multivitamins ADULT w/MIN LIQ 15 ML UDC PO SCH (10:16)
[2022-12-08] MEDS: Pantoprazole VIAL 40 MG VIAL IV SCH (10:16)
[2022-12-08] MEDS: Dextran 70/Hypromellose Tears Eye Drops 15 ml BTL (for Artificials Tears) BOTH EYES PRN (10:22)
[2022-12-08] MEDS: OLANZapine 5 mg TAB *ODT PO SCH ×2 (10:52→20:38)
[2022-12-08] MEDS: Anidulafungin 100 MG in NS 0.9% 100 ml BAG 100 ML IVPB SCH (14:22)
[2022-12-08] MEDS: Nicotine PATCH 14 MG/24 HR PATCH TRANSDERM SCH (15:22)
[2022-12-09] MEDS: Metoprolol Tartrate 5 mg VIAL 5 ml VIAL (1 mg/ml) IV PRN ×2 (02:22→18:14)
[2022-12-09] MEDS: Meropenem 1 GM PREMIX(*) 1 GM/50 ML BAG IV SCH ×3 (02:22→18:14)
[2022-12-09 04:32] LABS: ABS Basophils 0.1 10^3/ul (0-0.2); ABS Eosinophils 0.1 10^3/ul (0-0.6); ABS Lymphocytes 1.9 10^3/ul (1.0-4.8); ABS Monocytes 0.7 10^3/ul (0-0.8); ABS Neutrophils 5.6 10^3/ul (1.5-7.7); Eosinophil % 1.5 %; Hematocrit 25 % (42-52); Hemoglobin 8.5 g/dL (14.0-18.0); Lymphocyte % 22.4 %; Mean Corpuscular HGB Conc 34 g/dL (31-36); Mean Corpuscular Hemoglobin 35 pg (27-31); Mean Corpuscular Volume 105 fL (80-94); Mean Platelet Volume 8.4 fL (7.4-10.4); Nucleated Red Blood Cells % 0.4; Platelet Count 360 10^3/uL (150-450); Red Blood Count 2.42 10^6 /uL (4.18-5.48); Red Cell Distribution Width 17 % (10-15); White Blood Count 8.4 10^3/uL (3.5-10.8)
[2022-12-09 05:02] LABS: Calcium 7.8 mg/dL (8.6-10.3); Creatinine, Serum 0.58 mg/dL (0.67-1.17); Magnesium 1.6 mg/dL (1.9-2.7); Potassium 3.3 mmol/L (3.5-5.0); eGFR CKD-EPI 131.2 (>60)
[2022-12-09] MEDS ORDERED: Magnesium Sulf 4 GM/100 ML IV 4,000 MG/100 ML BAG IVPB ONE (05:29)
[2022-12-09] MEDS: Enoxaparin 40 MG/0.4 ML SYR SUBCUT SCH (09:05)
[2022-12-09] MEDS: Nicotine PATCH 14 MG/24 HR PATCH TRANSDERM SCH (09:05)
[2022-12-09] MEDS: Insulin GLARGINE 100 un/ml 10 ml VIAL SUBCUT SCH (09:05)
[2022-12-09] MEDS: Pantoprazole VIAL 40 MG VIAL IV SCH (09:06)
[2022-12-09] MEDS: Potassium Chlor 20 meq TAB.ER PO SCH ×2 (09:07→20:26)
[2022-12-09] MEDS: OLANZapine 5 mg TAB *ODT PO SCH ×2 (09:07→20:28)
[2022-12-09] MEDS: Multivitamins ADULT w/MIN LIQ 15 ML UDC PO SCH (09:08)
[2022-12-09] MEDS: Anidulafungin 100 MG in NS 0.9% 100 ml BAG 100 ML IVPB SCH (12:43)
[2022-12-10] MEDS: Meropenem 1 GM PREMIX(*) 1 GM/50 ML BAG IV SCH (03:27)
[2022-12-10 05:23] LABS: ABS Basophils 0.2 10^3/ul (0-0.2); ABS Eosinophils 0.2 10^3/ul (0-0.6); ABS Lymphocytes 1.6 10^3/ul (1.0-4.8); ABS Monocytes 0.6 10^3/ul (0-0.8); ABS Neutrophils 3.7 10^3/ul (1.5-7.7); Eosinophil % 2.6 %; Hematocrit 25 % (42-52); Hemoglobin 8.3 g/dL (14.0-18.0); Lymphocyte % 25.9 %; Mean Corpuscular HGB Conc 33 g/dL (31-36); Mean Corpuscular Hemoglobin 35 pg (27-31); Mean Corpuscular Volume 106 fL (80-94); Mean Platelet Volume 8.2 fL (7.4-10.4); Nucleated Red Blood Cells % 0.4; Platelet Count 344 10^3/uL (150-450); Red Blood Count 2.38 10^6 /uL (4.18-5.48); Red Cell Distribution Width 17 % (10-15); White Blood Count 6.2 10^3/uL (3.5-10.8)
[2022-12-10 06:15] LABS: Calcium 8.2 mg/dL (8.6-10.3); Creatinine, Serum 0.63 mg/dL (0.67-1.17); Magnesium 1.8 mg/dL (1.9-2.7); Potassium 3.6 mmol/L (3.5-5.0)
[2022-12-10] MEDS ORDERED: Magnesium Sulfate IV 1GM/100ML 1 GM/100 ML BAG IV ONE (06:17)
[2022-12-10] MEDS: Potassium Chlor 20 meq TAB.ER PO SCH ×2 (07:55→20:44)
[2022-12-10] MEDS: OLANZapine 5 mg TAB *ODT PO SCH ×2 (07:56→20:45)
[2022-12-10] MEDS: Multivitamins ADULT w/MIN LIQ 15 ML UDC PO SCH (08:01)
[2022-12-10] MEDS: Nicotine PATCH 14 MG/24 HR PATCH TRANSDERM SCH (08:01)
[2022-12-10] MEDS: Pantoprazole VIAL 40 MG VIAL IV SCH (08:02)
[2022-12-10] MEDS ORDERED: Magnesium Sulfate 2 gm BAG 2 GM/50 ML BAG IVPB ONE (08:11)
[2022-12-10] MEDS: Insulin GLARGINE 100 un/ml 10 ml VIAL SUBCUT SCH (08:39)
[2022-12-10] MEDS: Enoxaparin 40 MG/0.4 ML SYR SUBCUT SCH (10:00)
[2022-12-10] MEDS: Anidulafungin 100 MG in NS 0.9% 100 ml BAG 100 ML IVPB SCH (14:48)
[2022-12-11 05:26] LABS: Hematocrit 25 % (42-52); Hemoglobin 8.3 g/dL (14.0-18.0); Mean Corpuscular HGB Conc 33 g/dL (31-36); Mean Corpuscular Hemoglobin 34 pg (27-31); Mean Corpuscular Volume 104 fL (80-94); Mean Platelet Volume 8.6 fL (7.4-10.4); Platelet Count 339 10^3/uL (150-450); Red Blood Count 2.43 10^6 /uL (4.18-5.48); Red Cell Distribution Width 17 % (10-15)
[2022-12-11 05:41] LABS: ABS Eosinophils 0.1 10^3/ul (0-0.6); ABS Lymphocytes 1.7 10^3/ul (1.0-4.8); ABS Monocytes 0.6 10^3/ul (0-0.8); ABS Neutrophils 3.6 10^3/ul (1.5-7.7); Eosinophil % 2.3 %; Lymphocyte % 28.5 %; Nucleated Red Blood Cells % 0.3
[2022-12-11 06:20] LABS: Calcium 8.4 mg/dL (8.6-10.3); Creatinine, Serum 0.52 mg/dL (0.67-1.17); Potassium 3.9 mmol/L (3.5-5.0); eGFR CKD-EPI 135.6 (>60)
[2022-12-11] MEDS: Multivitamins ADULT w/MIN LIQ 15 ML UDC PO SCH (07:57)
[2022-12-11] MEDS: Insulin GLARGINE 100 un/ml 10 ml VIAL SUBCUT SCH (07:58)
[2022-12-11] MEDS: Nicotine PATCH 14 MG/24 HR PATCH TRANSDERM SCH (07:58)
[2022-12-11] MEDS: OLANZapine 5 mg TAB *ODT PO SCH ×2 (08:00→21:29)
[2022-12-11 08:11] LABS: Magnesium 1.6 mg/dL (1.9-2.7)
[2022-12-11] MEDS: Enoxaparin 40 MG/0.4 ML SYR SUBCUT SCH (08:49)
[2022-12-11] MEDS ORDERED: Magnesium Sulf 4 GM/100 ML IV 4,000 MG/100 ML BAG IVPB ONE (09:10)
[2022-12-11] MEDS: Anidulafungin 100 MG in NS 0.9% 100 ml BAG 100 ML IVPB SCH (14:49)
[2022-12-12 07:19] LABS: ABS Basophils 0.2 10^3/ul (0-0.2); ABS Eosinophils 0.2 10^3/ul (0-0.6); ABS Lymphocytes 1.7 10^3/ul (1.0-4.8); ABS Monocytes 0.6 10^3/ul (0-0.8); ABS Neutrophils 2.9 10^3/ul (1.5-7.7); Eosinophil % 2.7 %; Hematocrit 26 % (42-52); Hemoglobin 8.8 g/dL (14.0-18.0); Lymphocyte % 31.1 %; Mean Corpuscular HGB Conc 33 g/dL (31-36); Mean Corpuscular Hemoglobin 35 pg (27-31); Mean Corpuscular Volume 105 fL (80-94); Mean Platelet Volume 8.7 fL (7.4-10.4); Nucleated Red Blood Cells % 0.3; Platelet Count 347 10^3/uL (150-450); Red Blood Count 2.52 10^6 /uL (4.18-5.48); Red Cell Distribution Width 16 % (10-15); White Blood Count 5.5 10^3/uL (3.5-10.8)
[2022-12-12 07:34] LABS: Albumin 2.9 g/dL (3.2-5.2); Albumin/Globulin Ratio 1.1 (1-3); Calcium 8.8 mg/dL (8.6-10.3); Creatinine, Serum 0.56 mg/dL (0.67-1.17); Globulin 2.6 g/dL (2-4); Magnesium 1.7 mg/dL (1.9-2.7); Phosphorus 4.9 mg/dL (2.5-5.0); Potassium 3.9 mmol/L (3.5-5.0); Total Protein 5.5 g/dL (6.4-8.9); eGFR CKD-EPI 132.6 (>60)
[2022-12-12] MEDS: Nicotine PATCH 14 MG/24 HR PATCH TRANSDERM SCH (08:23)
[2022-12-12] MEDS: Insulin GLARGINE 100 un/ml 10 ml VIAL SUBCUT SCH (08:23)
[2022-12-12] MEDS: OLANZapine 5 mg TAB *ODT PO SCH ×2 (08:28→20:56)
[2022-12-12] MEDS: Multivitamins ADULT w/MIN LIQ 15 ML UDC PO SCH (10:12)
[2022-12-12] MEDS: Enoxaparin 40 MG/0.4 ML SYR SUBCUT SCH (10:12)
[2022-12-12] MEDS: Anidulafungin 100 MG in NS 0.9% 100 ml BAG 100 ML IVPB SCH (12:42)
[2022-12-12] MEDS: Nicotine GUM 2MG FRUIT FLAVOR PO PRN ×2 (18:13→20:59)
[2022-12-13] MEDS: Nicotine GUM 2MG FRUIT FLAVOR PO PRN ×4 (02:11→21:21)
[2022-12-13] MEDS: Multivitamins ADULT w/MIN LIQ 15 ML UDC PO SCH (08:43)
[2022-12-13] MEDS: Nicotine PATCH 14 MG/24 HR PATCH TRANSDERM SCH (08:44)
[2022-12-13] MEDS: OLANZapine 5 mg TAB *ODT PO SCH ×2 (08:45→21:23)
[2022-12-13] MEDS: Insulin GLARGINE 100 un/ml 10 ml VIAL SUBCUT SCH (08:46)
[2022-12-13] MEDS: Enoxaparin 40 MG/0.4 ML SYR SUBCUT SCH (10:26)
[2022-12-13] MEDS: Anidulafungin 100 MG in NS 0.9% 100 ml BAG 100 ML IVPB SCH (12:30)
[2022-12-14] MEDS: Nicotine GUM 2MG FRUIT FLAVOR PO PRN ×6 (00:09→20:47)
[2022-12-14] MEDS: Nicotine PATCH 14 MG/24 HR PATCH TRANSDERM SCH (08:42)
[2022-12-14] MEDS: Insulin GLARGINE 100 un/ml 10 ml VIAL SUBCUT SCH (08:43)
[2022-12-14] MEDS: OLANZapine 5 mg TAB *ODT PO SCH ×2 (10:21→20:48)
[2022-12-14] MEDS: Multivitamins ADULT w/MIN LIQ 15 ML UDC PO SCH (10:23)
[2022-12-14] MEDS: Enoxaparin 40 MG/0.4 ML SYR SUBCUT SCH (10:25)
[2022-12-14] MEDS: Anidulafungin 100 MG in NS 0.9% 100 ml BAG 100 ML IVPB SCH (13:33)
[2022-12-15] MEDS: Nicotine GUM 2MG FRUIT FLAVOR PO PRN ×5 (06:27→22:23)
[2022-12-15 06:51] LABS: ABS Basophils 0.2 10^3/ul (0-0.2); ABS Eosinophils 0.2 10^3/ul (0-0.6); ABS Lymphocytes 1.7 10^3/ul (1.0-4.8); ABS Monocytes 0.6 10^3/ul (0-0.8); Eosinophil % 3.9 %; Hematocrit 28 % (42-52); Hemoglobin 9.2 g/dL (14.0-18.0); Mean Corpuscular HGB Conc 33 g/dL (31-36); Mean Corpuscular Hemoglobin 34 pg (27-31); Mean Corpuscular Volume 104 fL (80-94); Mean Platelet Volume 9.2 fL (7.4-10.4); Nucleated Red Blood Cells % 0.2; Platelet Count 273 10^3/uL (150-450); Red Blood Count 2.66 10^6 /uL (4.18-5.48); Red Cell Distribution Width 16 % (10-15); White Blood Count 4.7 10^3/uL (3.5-10.8)
[2022-12-15 07:21] LABS: Calcium 8.9 mg/dL (8.6-10.3); Creatinine, Serum 0.58 mg/dL (0.67-1.17); Magnesium 1.6 mg/dL (1.9-2.7); Potassium 4.1 mmol/L (3.5-5.0); eGFR CKD-EPI 131.2 (>60)
[2022-12-15] MEDS: Nicotine PATCH 14 MG/24 HR PATCH TRANSDERM SCH (07:51)
[2022-12-15] MEDS: Multivitamins ADULT w/MIN LIQ 15 ML UDC PO SCH (07:52)
[2022-12-15] MEDS: OLANZapine 5 mg TAB *ODT PO SCH ×2 (07:53→20:36)
[2022-12-15] MEDS: Enoxaparin 40 MG/0.4 ML SYR SUBCUT SCH (07:53)
[2022-12-15] MEDS: Insulin GLARGINE 100 un/ml 10 ml VIAL SUBCUT SCH (07:54)
[2022-12-15] MEDS ORDERED: Magnesium Sulf 4 GM/100 ML IV 4,000 MG/100 ML BAG IVPB ONE (08:17)
[2022-12-15 12:58] LABS: Uric Acid 8.4 mg/dL (4.4-7.6)
[2022-12-15] MEDS: Anidulafungin 100 MG in NS 0.9% 100 ml BAG 100 ML IVPB SCH (18:39)
[2022-12-16 07:27] LABS: ABS Eosinophils 0.2 10^3/ul (0-0.6); ABS Lymphocytes 1.5 10^3/ul (1.0-4.8); ABS Monocytes 0.6 10^3/ul (0-0.8); ABS Neutrophils 1.8 10^3/ul (1.5-7.7); Hematocrit 29 % (42-52); Hemoglobin 9.8 g/dL (14.0-18.0); Lymphocyte % 36.8 %; Mean Corpuscular HGB Conc 34 g/dL (31-36); Mean Corpuscular Hemoglobin 36 pg (27-31); Mean Corpuscular Volume 104 fL (80-94); Mean Platelet Volume 9.1 fL (7.4-10.4); Nucleated Red Blood Cells % 0.1; Platelet Count 266 10^3/uL (150-450); Red Blood Count 2.76 10^6 /uL (4.18-5.48); Red Cell Distribution Width 16 % (10-15); White Blood Count 4.1 10^3/uL (3.5-10.8)
[2022-12-16 07:49] LABS: Blood Urea Nitrogen 6 mg/dL (6-24); C Reactive Protein 13.48 mg/L (<8.01); CO2 Carbon Dioxide 27 mmol/L (22-32); Chloride 104 mmol/L (101-111); Creatinine, Serum 0.55 mg/dL (0.67-1.17); Glucose 115 mg/dL (70-100); Magnesium 1.9 mg/dL (1.9-2.7); Sodium 135 mmol/L (135-145); eGFR CKD-EPI 133.4 (>60)
[2022-12-16 07:55] LABS: Anion Gap 4 mmol/L (2-11)
[2022-12-16] MEDS: Nicotine GUM 2MG FRUIT FLAVOR PO PRN ×2 (07:56→22:05)
[2022-12-16] MEDS: Insulin GLARGINE 100 un/ml 10 ml VIAL SUBCUT SCH (08:27)
[2022-12-16] MEDS: Enoxaparin 40 MG/0.4 ML SYR SUBCUT SCH (08:28)
[2022-12-16] MEDS: Nicotine PATCH 14 MG/24 HR PATCH TRANSDERM SCH (08:28)
[2022-12-16] MEDS: OLANZapine 5 mg TAB *ODT PO SCH ×2 (08:30→21:53)
[2022-12-16] MEDS: Multivitamins ADULT w/MIN LIQ 15 ML UDC PO SCH (08:31)
[2022-12-16] MEDS: Anidulafungin 100 MG in NS 0.9% 100 ml BAG 100 ML IVPB SCH (13:08)
[2022-12-17] MEDS: Enoxaparin 40 MG/0.4 ML SYR SUBCUT SCH (09:04)
[2022-12-17] MEDS: Insulin GLARGINE 100 un/ml 10 ml VIAL SUBCUT SCH (09:05)
[2022-12-17] MEDS: Multivitamins ADULT w/MIN LIQ 15 ML UDC PO SCH (09:06)
[2022-12-17] MEDS: OLANZapine 5 mg TAB *ODT PO SCH (09:06)
[2022-12-17] MEDS: Nicotine PATCH 14 MG/24 HR PATCH TRANSDERM SCH (09:11)
[2022-12-17 14:27] VITALS: BP 104/69
== END 2022-12-17 14:35 | disposition home or self-care (01) | DRG 896 ==
LOC: ED 09:38 → SUATTDRO 11:35 → EDHOLD 11:35 → ICU 14:43 → MED 12-11 19:13
PROVIDERS: ADMIT Internal Medicine Critical Care Medicine; ATTEND Internal Medicine